=== PATIENT | female | born 1955 | race Caucasian/White ===

== ENCOUNTER → 2023-11-10 13:03 | Outpatient (REF) | payer BC, SELFPAY ==
[2023-11-10 13:52] LABS: Urine Albumin Negative (Neg - Trace); Urine Bilirubin Negative (Negative); Urine Character Clear (Clear); Urine Color Yellow; Urine Glucose Negative (Negative); Urine Ketone Negative (Negative); Urine Leukocyte 2+ (Negative); Urine Nitrite Positive (Negative); Urine Occult Blood Trace (Negative); Urine Specific Gravity 1.015 (<1.030); Urine Urobilinogen Negative (Neg - 1+)
[2023-11-10 14:07] LABS: Urine Squamous Cell 16-20 /LPF (Few)
[2023-11-10 14:08] LABS: Urine Bacteria Many (Negative); Urine Red Blood Cell None Seen /HPF (0-2); Urine White Cell >100 /HPF (0-5)
[2023-11-10 14:38] LABS: ALT (SGPT) 47 U/L (0-35); AST (SGOT) 45 U/L (14-36); Albumin 4.2 g/dl (3.5-5.0); Alkaline Phosphatase 96 U/L (38-126); Blood Urea Nitrogen 14 mg/dl (7-17); Calcium 9.3 mg/dl (8.4-10.2); Carbon Dioxide 29 mmol/L (22-30); Chloride 99 mmol/L (98-107); Glucose 95 mg/dl (70-99); Potassium 3.8 mmol/L (3.5-5.1); Sodium 133 mmol/L (135-145); Total Bilirubin 0.6 mg/dl (0.2-1.3); Total Protein 7.1 g/dl (6.3-8.2); eGFR > 60.00
[2023-11-11 09:27] LABS: Glycohemoglobin (HgbA1c) 5.8 % (4.0-5.6)
== END ==
LOC: REG 13:03
PROVIDERS: ATTENDING PHYSICIAN Internal Medicine
DX: R30.0 Dysuria (principal); Z00.00 Encounter for general adult medical examination without abnormal findings; I10 Essential (primary) hypertension; R73.01 Impaired fasting glucose
CPT/HCPCS: 36415; 80053; 81003; 81015; 83036; 87086; 87088; 87186

== ENCOUNTER → 2024-09-06 06:38 | Outpatient (REF) | payer BC, SELFPAY | LOC: WDC 06:38 | PROVIDERS: ATTENDING PHYSICIAN Obstetrics & Gynecology Gynecology; FAMILY PHYSICIAN Family Medicine | DX: Z12.31 Encounter for screening mammogram for malignant neoplasm of breast (principal) | CPT/HCPCS: 77063; 77067 ==

== ENCOUNTER → 2024-09-18 07:34 | Outpatient (REF) | payer BC, SELFPAY ==
[2024-09-18 08:13] LABS: % Basophils 0.8 % (0-2); % Immature Granulocytes 0.3 % (0-0.5); % Lymphocytes 27.6 % (20.5-51.1); % Monocytes 6.4 % (1.7-9.3); % Neutrophils 56.9 % (42.2-75.2); Absolute Eosinophils 0.3 10^3/uL (0-0.7); Absolute Monocytes 0.2 10^3/uL (0.1-0.6); Absolute Neutrophils 2.1 10^3/uL (1.4-6.5); Hematocrit 45.5 % (37.0-47.0); Hemoglobin 16.3 g/dL (12.0-16.0); Mean Corp Hgb Conc. 35.8 g/dL (33.0-37.0); Mean Corpuscular Hgb 34.7 pg (27.0-31.0); Mean Corpuscular Volume 96.8 fL (81.0-99.0); Mean Platelet Volume 7.8 fL (7.4-10.4); Nucleated Red Blood Cells % 0 %; Platelet Count 203 10^3/uL (130-400); Red Cell Dist. Width 11.8 % (11.5-14.5); White Blood Cell Count 3.7 10^3/uL (4.8-10.8)
[2024-09-18 08:38] LABS: ALT (SGPT) 43 U/L (0-35); AST (SGOT) 65 U/L (14-36); Albumin 4.2 g/dl (3.5-5.0); Alkaline Phosphatase 70 U/L (38-126); Blood Urea Nitrogen 9 mg/dl (7-17); Calcium 9.1 mg/dl (8.4-10.2); Carbon Dioxide 28 mmol/L (22-30); Chloride 101 mmol/L (98-107); Glucose 101 mg/dl (70-99); HDL Cholesterol 68 mg/dl; LDL Cholesterol, Calculated 89 mg/dl; Potassium 4.1 mmol/L (3.5-5.1); Sodium 140 mmol/L (135-145); Total Bilirubin 0.5 mg/dl (0.2-1.3); Total Cholesterol 201 mg/dl (50-199); Triglyceride 221 mg/dl (10-149); Very Low Density Lipoprotein 44 mg/dl (0-30); eGFR > 60.00
[2024-09-18 09:06] LABS: TSH Reflex To Free T4 1.59 uIU/ml (0.47-4.68)
== END ==
LOC: REG 07:34
PROVIDERS: ATTENDING PHYSICIAN Student in an Organized Health Care Education/Training Program
DX: Z00.01 Encounter for general adult medical examination with abnormal findings (principal); I10 Essential (primary) hypertension; Z13.220 Encounter for screening for lipoid disorders
CPT/HCPCS: 36415; 80053; 80061; 84443; 85025

== ENCOUNTER → 2024-12-13 07:31 | Outpatient (REF) | payer BC, SELFPAY ==
[2024-12-13 09:02] LABS: ALT (SGPT) 37 U/L (0-35)
== END ==
LOC: REG 07:31
PROVIDERS: ATTENDING PHYSICIAN Physician Assistant Medical
DX: R74.8 Abnormal levels of other serum enzymes (principal)
CPT/HCPCS: 36415; 84460

== ENCOUNTER 2025-06-19 06:13 | Day surgery (SDC) | payer BC, SELFPAY ==
[2025-06-19 07:20] VITALS: BMI 29.2
[2025-06-19 07:26] VITALS: BP 146/87
[2025-06-19] MEDS: POLYTRIM OPHTHALMIC SOLUTION 1 DROP OPHTH (07:29)
[2025-06-19] MEDS: NEO-SYNEPHRINE 2.5% OPH SOL. 1 DROP OPHTH (07:29)
[2025-06-19] MEDS: CYCLOGYL 1% EYE DROPS 1 DROP OPHTH (07:29)
[2025-06-19] MEDS: ALCAINE 0.5% EYE DROPS 1 DROP OPHTH (07:29)
[2025-06-19] MEDS: MYDRIACYL 1 DROP OPHTH (07:29)
[2025-06-19] MEDS: PRED FORTE 1% EYE DROPS 1 DROP OPHTH (07:30)
[2025-06-19] MEDS: NORMOSOL-R/PLASMALYTE-A 1000 IV (07:36)
[2025-06-19] MEDS: AKTEN OPHTHALMIC GEL 1 ML OPHTH (08:01)
[2025-06-19 09:19] VITALS: BP 131/76
== END 2025-06-19 09:45 | disposition home or self-care (01) ==
LOC: SDS 06:13
PROVIDERS: ATTENDING PHYSICIAN Ophthalmology; FAMILY PHYSICIAN Physician Assistant Medical
DX: H25.11 Age-related nuclear cataract, right eye (principal)
CPT/HCPCS: 66984

== ENCOUNTER 2025-07-03 06:16 | Day surgery (SDC) | payer BC, SELFPAY ==
[2025-07-03] MEDS: ALCAINE 0.5% EYE DROPS 1 DROP OPHTH (06:35)
[2025-07-03 06:36] VITALS: BMI 29.2
[2025-07-03] MEDS: POLYTRIM OPHTHALMIC SOLUTION 1 DROP OPHTH (06:36)
[2025-07-03] MEDS: CYCLOGYL 1% EYE DROPS 1 DROP OPHTH (06:36)
[2025-07-03] MEDS: MYDRIACYL 1 DROP OPHTH (06:36)
[2025-07-03] MEDS: PRED FORTE 1% EYE DROPS 1 DROP OPHTH (06:36)
[2025-07-03 06:37] VITALS: BMI 29.2
[2025-07-03] MEDS: NEO-SYNEPHRINE 2.5% OPH SOL. 1 DROP OPHTH (06:37)
[2025-07-03] MEDS: NORMOSOL-R/PLASMALYTE-A 1000 IV (06:37)
[2025-07-03] MEDS: AKTEN OPHTHALMIC GEL 1 ML OPHTH (06:37)
[2025-07-03 06:38] VITALS: BP 145/95
[2025-07-03 08:05] VITALS: BP 140/84
== END 2025-07-03 08:18 | disposition home or self-care (01) ==
LOC: SDS 06:16
PROVIDERS: ATTENDING PHYSICIAN Ophthalmology; FAMILY PHYSICIAN Physician Assistant Medical
DX: H25.12 Age-related nuclear cataract, left eye (principal)
CPT/HCPCS: 66984; V2632

== ENCOUNTER → 2025-08-26 07:52 | Outpatient (REF) | payer BC, SELFPAY | LOC: RAD 07:52 | PROVIDERS: ATTENDING PHYSICIAN Obstetrics & Gynecology Gynecology; FAMILY PHYSICIAN Physician Assistant Medical | DX: Z78.0 Asymptomatic menopausal state (principal) | CPT/HCPCS: 77080 ==

== ENCOUNTER → 2025-08-30 15:21 | Outpatient (REF) | payer BC, SELFPAY ==
[2025-08-30 16:43] LABS: Urine Character Slightly Cloudy (Clear)
[2025-08-30 17:55] LABS: Urine Red Blood Cell 16-20 /HPF (0-2); Urine Squamous Cell 0-2 /LPF (Few); Urine White Cell >100 /HPF (0-5)
== END ==
LOC: REG 15:21
PROVIDERS: ATTENDING PHYSICIAN Physician Assistant Medical
DX: R35.0 Frequency of micturition (principal)
CPT/HCPCS: 81003; 81015; 87077; 87086; 87186

== ENCOUNTER → 2025-09-09 07:11 | Outpatient (REF) | payer BC, SELFPAY | LOC: WDC 07:11 | PROVIDERS: ATTENDING PHYSICIAN Obstetrics & Gynecology Gynecology; FAMILY PHYSICIAN Physician Assistant Medical | DX: Z12.31 Encounter for screening mammogram for malignant neoplasm of breast (principal) | CPT/HCPCS: 77063; 77067 ==